=== PATIENT | female | born 1970 | race Caucasian/White ===

== ENCOUNTER 2024-03-01 17:34 | Emergency (ER) | payer OTHER ==
[~2024-03-01] VITALS: Ht 160 cm; Wt 59.0 kg
[2024-03-01 19:14] VITALS: BP 122/89; TEMP 98.2; O2SAT 100
== END 2024-03-01 19:15 | disposition home or self-care (01) ==
LOC: ER 17:34
DX: N83.201 Unspecified ovarian cyst, right side (principal)
CPT/HCPCS: 76856-TC